=== PATIENT | female | born 1950 | race Asian ===

== ENCOUNTER 2021-08-05 11:15 | Emergency (ER) | payer OTHER ==
[~2021-08-05] VITALS: Ht 175.3 cm; Wt 81.6 kg
[2021-08-05 11:15] VITALS: BP 122/73; TEMP 97.9
[2021-08-05 11:46] LABS: PLATELET COUNT 249 K/uL (152-353)
[2021-08-05 11:55] LABS: POTASSIUM 3.5 mmol/L (3.6-5.2)
[2021-08-05] MEDS ORDERED: HYZAAR1 TA2 PO (14:45)
[2021-08-05] MEDS ORDERED: XARELTO20 MG PO (14:45)
== END 2021-08-05 12:35 | disposition still patient (30) ==
LOC: ED 11:15
PROVIDERS: Emergency Medicine
DX: F22 Delusional disorders (principal); F32.89 Other specified depressive episodes; R41.0 Disorientation, unspecified; R56.9 Unspecified convulsions; Z11.52 Encounter for screening for COVID-19; Z04.6 Encounter for general psychiatric examination, requested by authority
CPT/HCPCS: 80053; 80307; 81000; 85027; 87635; 93005; 99283; U0003

== ENCOUNTER 2021-11-29 17:57 | Emergency (ER) | payer OTHER ==
[~2021-11-29] VITALS: Ht 175.3 cm; Wt 102.1 kg
[~2021-11-29 17:57] MED LIST: APIX1TAB PO; CHOL100034 PO; ESCI10TA PO; FOLI1TAB26 PO; GABA300C2 PO; HALO5TAB10 PO; HYDR25TA60 PO; HYZAAR1 TA2 PO; LOSA50TA PO; OLANZAPINE5 MG PO; XARELTO20 MG PO
[2021-11-29 18:10] VITALS: BP 131/92; TEMP 97.9
[2021-11-29 18:25] LABS: PLATELET COUNT 284 K/uL (152-353)
[2021-11-29 18:32] LABS: POTASSIUM 3.5 mmol/L (3.6-5.2)
[2021-11-30] MEDS ORDERED: FURO40TA93 PO (09:57)
[2021-11-30] MEDS ORDERED: LORATADINE10 MG PO (09:58)
[2021-11-30] MEDS ORDERED: PANTOPRAZOLE SO40 M2 PO (09:59)
[2021-11-30] MEDS ORDERED: HYZAAR1 TA2 PO (10:00)
[2021-11-30] MEDS ORDERED: TRAZ50TA36 PO (10:00)
== END 2021-11-29 18:57 | disposition still patient (30) ==
LOC: ED 17:57
PROVIDERS: Hospitalist
DX: F25.8 Other schizoaffective disorders (principal); F22 Delusional disorders; R46.89 Other symptoms and signs involving appearance and behavior; Z11.52 Encounter for screening for COVID-19; Z04.6 Encounter for general psychiatric examination, requested by authority
CPT/HCPCS: 80053; 85027; 87635; 93005; 99283; U0003